=== PATIENT | female | born 1975 | race Caucasian/White ===

== ENCOUNTER 2024-10-13 13:14 | Outpatient (CLI) | payer OTHER, SELFPAY ==
[2024-10-13] VITALS (9 sets, daily range): BP systolic 131–152; BP diastolic 83–105; PULSE 81–93; RESP 12–18; TEMP 36.6; O2SAT 95–99
--- NOTE | 2024-10-13 06:00 | DI.RAD_ITS ---
Exam(s) XR PAIN CLINIC LUMBAR SP 2V EXAM: XR PAIN CLINIC LUMBAR SP 2V CLINICAL HISTORY: Dx: Lumbar Spondylosis with Radiculopathy TECHNIQUE: 2D and realtime digital imaging was performed. CONTRAST MATERIAL: Refer to procedure report. COMPARISON: No exams were available for comparison FINDINGS: Fluoroscopy was provided for Dr. Vieira during the performance of a lumbar selective nerve root block. Please refer to the procedure report for complete details. Ka,r=13.7 mGy IMPRESSION: RADIATION DOSE DELIVERED: 0.0 0.0 0
[2024-10-13] MEDS: Lidocaine 2% Pres-Free 5 ML VIAL IJ (14:57)
[2024-10-13] MEDS: Omnipaque 240 MG/ML 50 ML BTL IJ (14:57)
[2024-10-13] MEDS: Nerve Block Tray 1 EACH MC (14:57)
--- NOTE | 2024-10-13 15:59 | PDOC.PAIN ---
Date of service: 10/13/24 Time of Service: 15:59 Pain Managment Procedure Note Procedure Note Procedure Note: LUMBAR SELECTIVE NERVE ROOT BLOCK Maryam Bender has been referred [facility] for a RIGHT L3 selective nerve root block without steroid. COMMENTS: The patient was referred by her surgeon for a right L3 selective nerve root block to determine if this nerve is being irritated and thus causing her current right leg symptoms Dx: Lumbar radiculopathy Pre-procedure pain VAS: 5/10 (right leg) Patient was interviewed and the medical record reviewed. There were no medical, pharmacologic, radiographic or other structural contraindications to attempting fluoroscopically guided selective nerve root block. Risks and expected side effects as well as potential benefit of the procedure were reviewed and voiced concerns addressed. The printed consent form was signed and witnessed. Standard time-out procedure was performed. Patient was placed in the prone position on the fluoroscopy table and automated blood pressure cuff and pulse oximeter applied. Fluoroscopy was utilized to identify the right L3 neural foramen between L3 and L4 . A skin brian was made for the needle insertion site. A Chlorhexadine prep was carried out, and sterile drapes were applied. Local anesthesia was achieved in the skin and subcutaneous tissues. A 22 gauge curved tip 5 spinal needle was then inserted, advanced with fluoroscopic guidance into the neural foramen, confirmed on the lateral view. After negative aspiration, 2 ml of Omnipaque 240 was injected confirming position in A/P and lateral views. This showed a good spread of dye transforaminally into the epidural space. There was no vascular update with contrast injection under continuous fluoroscopy. 0.5 ml of 2% Lidocaine was injected. There was no unusual discomfort expressed.The needle was withdrawn. The patient tolerated the procedure well. A Band-Aid was applied. Vital signs were stable throughout the procedure and were as recorded in nursing records. If given, dosages of intravenous drugs for anxiolysis and analgesia were documented in nursing records. Follow up plans and appointments were discussed. Post procedure instruction was given as documented in nursing records and patient was discharged in the care of an identified delivery driver/supervisor. COMMENTS: Resolution of right leg pain after the procedure (VAS Pain score of 0/10 for the right leg). She did feel a little flushed after the procedure and we watched her for 25 minutes. She felt that she needed to get something to eat and felt ready to be discharged. Rene Vieira DO, MPH [facility] CC: Eusebio Coelho APRN Coding Conscious Sedation used for procedure: No CPT Codes: Transforaminal Lumbar/Sacral (includes fluoro) - 06965 ([id number] ~G) Additional Codes: Date of Service (50864) Date of service: 10/13/24
== END 2024-10-13 13:15 | disposition home or self-care (01) ==
LOC: PC 13:16
PROVIDERS: Visit Provider Preventive Medicine Occupational Medicine
DX: M54.16 Radiculopathy, lumbar region (principal)
CPT/HCPCS: 64483; 72100; Q9967